=== PATIENT | female | born 1960 | race Caucasian/White ===

== ENCOUNTER 2021-08-29 19:29 | Emergency (ER) | payer MEDICAID ==
[~2021-08-29] VITALS: Ht 154.9 cm; Wt 59.0 kg
[2021-08-29 22:29] LABS: Urine Bacteria FEW /hpf (None Seen); Urine Blood 3+ /uL (Negative)
[2021-08-29 22:38] LABS: Urine WBC 4 /hpf (0 - 5)
[2021-08-29] MEDS ORDERED: levoFLOXacin 500 MG TAB PO ONE (22:45)
[2021-08-29] MEDS ORDERED: HYDROcodone-ACET 5/325MG TAB PO ONE (22:45)
[2021-08-29] MEDS ORDERED: HYDR-4902 PO (22:49)
[2021-08-29] MEDS ORDERED: LEVO500T31 PO (22:49)
[2021-08-30 01:00] VITALS: BP 120/76
== END 2021-08-30 01:20 | disposition home or self-care (01) ==
LOC: ER 19:29
DX: N20.0 Calculus of kidney (principal); N39.0 Urinary tract infection, site not specified
CPT/HCPCS: 74176; 81001

== ENCOUNTER 2023-07-17 20:23 | Inpatient (IN) | payer MEDICAID ==
[~2023-07-17] VITALS: Ht 160 cm; Wt 50.0 kg
[~2023-07-17 20:23] MED LIST: HYDR-4902 PO; LEVO500T31 PO
[2023-07-17] MEDS: SODIUM CHLORIDE 0.9% 1,000 ML IV ONE (20:30)
[2023-07-17 21:30] LABS: Chloride 107 mmol/L (98-107); Sodium 139 mmol/L (136-145)
[2023-07-17 21:31] LABS: Anion Gap 4 (5-15); Carbon Dioxide 28 mmol/L (20-30)
[2023-07-17 21:32] LABS: Calcium 9.6 mg/dL (8.5-10.1)
[2023-07-17 21:36] LABS: Glucose 103 mg/dL (74-106)
[2023-07-17 21:37] LABS: BUN/Creatinine Ratio 17.7 (10.0-20.0); Blood Urea Nitrogen 11 mg/dL (9-23)
[2023-07-17 21:58] LABS: Basophils # (auto) 0 10 ^3/uL (0-0.2); Basophils % (auto) 0.6 % (0.0-2.0); Eosinophils # (auto) 0.1 10 ^3/uL (0-0.8); Eosinophils % (auto) 2.7 % (0.0-7.0); Hematocrit 39.1 % (36.0-46.0); Hemoglobin 13.4 g/dL (12.2-16.2); Lymphocytes # (auto) 1.7 10 ^3/uL (0.4-5.4); Lymphocytes % (auto) 30.8 % (10.0-50.0); Mean Corpuscular Hemoglobin 29.6 pg (28.0-32.0); Mean Corpuscular Hgb Conc. 34.2 g/dL (32.0-36.0); Mean Corpuscular Volume 86.7 fL (80.0-100.0); Monocytes # (auto) 0.4 10 ^3/uL (0-1.3); Monocytes % (auto) 6.8 % (0.0-12.0); Neutrophils # (auto) 3.2 10 ^3/uL (1.6-8.6); Neutrophils % (auto) 59.1 % (37.0-80.0); Red Blood Cells 4.51 10^6/uL (4.0-5.20); White Blood Cell 5.5 10^3/uL (4.4-10.8)
[2023-07-18] MEDS ORDERED: NITROGLYCERIN 0.4 MG SL TAB SL PRN
[2023-07-18] MEDS ORDERED: DOCUSATE SOD 100 MG CAP PO PRN
[2023-07-18] MEDS ORDERED: ACETAMINOPHEN 325 MG TAB PO PRN
[2023-07-18] MEDS ORDERED: ONDANSETRON HCL 4 MG/2 ML VIAL IV PRN
[2023-07-18] MEDS ORDERED: MORPHINE SULFATE INJ 2 MG/ml SYRG IV PRN
[2023-07-18] MEDS ORDERED: HYDROcodone-ACET 5/325MG TAB PO PRN
[2023-07-18 04:21] LABS: Basophils # (auto) 0 10 ^3/uL (0-0.2); Basophils % (auto) 0.3 % (0.0-2.0); Eosinophils # (auto) 0 10 ^3/uL (0-0.8); Eosinophils % (auto) 0.5 % (0.0-7.0); Hematocrit 40.5 % (36.0-46.0); Hemoglobin 13.7 g/dL (12.2-16.2); Lymphocytes # (auto) 1.3 10 ^3/uL (0.4-5.4); Lymphocytes % (auto) 19.2 % (10.0-50.0); Mean Corpuscular Hemoglobin 29.5 pg (28.0-32.0); Mean Corpuscular Hgb Conc. 33.9 g/dL (32.0-36.0); Mean Corpuscular Volume 87.1 fL (80.0-100.0); Monocytes # (auto) 0.3 10 ^3/uL (0-1.3); Monocytes % (auto) 4.5 % (0.0-12.0); Neutrophils # (auto) 5.2 10 ^3/uL (1.6-8.6); Neutrophils % (auto) 75.5 % (37.0-80.0); Nucleated Red Blood Cells % 0.1 %; Red Blood Cells 4.65 10^6/uL (4.0-5.20); Red Cell Distribution Width 13.5 % (11.8-14.3); White Blood Cell 6.9 10^3/uL (4.4-10.8)
[2023-07-18 04:41] LABS: Alanine Aminotransferase 15 U/L (7-40); Albumin 4.5 g/dL (3.2-4.8); Alkaline Phosphatase 39 U/L (46-116); Anion Gap 3 (5-15); Aspartate Aminotransferase < 8 U/L (13-40); BUN/Creatinine Ratio 22.8 (10.0-20.0); Bilirubin, Total 0.4 mg/dL (0.2-1.0); Blood Urea Nitrogen 13 mg/dL (9-23); Calcium 9.7 mg/dL (8.5-10.1); Carbon Dioxide 29 mmol/L (20-30); Chloride 107 mmol/L (98-107); Glucose 116 mg/dL (74-106); Sodium 139 mmol/L (136-145); Total Protein 6.8 g/dL (5.7-8.2)
[2023-07-18] MEDS ORDERED: PARO1TAB33 PO (09:52)
[2023-07-18 10:15] VITALS: BP 101/66; PULSE 77; RESP 20; TEMP 98; O2SAT 96
[2023-07-18 13:00] VITALS: BP 96/58; PULSE 67; RESP 18; TEMP 98; O2SAT 95
[2023-07-18] MEDS: SODIUM CHLORIDE 0.9% 1,000 ML IV SCH (13:30)
[2023-07-18 16:43] VITALS: BP 109/60; PULSE 63; RESP 18; TEMP 98; O2SAT 97
[2023-07-18 19:30] VITALS: PULSE 60; PULSE 61; RESP 17; O2SAT 97
[2023-07-18 21:00] VITALS: BP 99/68; PULSE 66; RESP 16; TEMP 97.8; O2SAT 97
[2023-07-18] MEDS ORDERED: LORazepam 2MG/ML-1ML VIAL IV PRN (23:30)
[2023-07-19 08:00] VITALS: PULSE 54
[2023-07-19 09:00] VITALS: BP 107/60; PULSE 68; RESP 14; TEMP 97.4; O2SAT 97
[2023-07-19] MEDS ORDERED: MECL12.586 PO (14:03)
[2023-07-19 16:30] VITALS: BP 108/62; PULSE 72; RESP 18; TEMP 98.6; O2SAT 96
== END 2023-07-19 16:55 | disposition home or self-care (01) | DRG 111 ==
LOC: ER 20:23 → EDBD 20:23 → TELE 23:49 → TELE-WESTW 07-18 09:47
PROVIDERS: ADMIT Nurse Practitioner Family; ATTEND Internal Medicine
DX: H81.10 Benign paroxysmal vertigo, unspecified ear (principal); F17.200 Nicotine dependence, unspecified, uncomplicated; I10 Essential (primary) hypertension; R26.81 Unsteadiness on feet; Z87.442 Personal history of urinary calculi; Z82.49 Family history of ischemic heart disease and other diseases of the circulatory system; Z83.3 Family history of diabetes mellitus; Z82.3 Family history of stroke
CPT/HCPCS: 36415; 70450; 70551; 80048; 80053; 84484; 85025; 97163; G0378